=== PATIENT | male | born 1990 | race American Indian/Alaskan Native ===

== ENCOUNTER 2021-10-31 01:19 | Emergency (ER) | payer SELFPAY ==
[2021-10-31 00:07] VITALS: BP 169/108; PULSE 104
[2021-10-31 00:30] LABS: ANION GAP 10.9 mEq/L (7-13); CHLORIDE,CL 101 mmol/L (98-107); SODIUM,NA 138 mmol/L (136-145)
[2021-10-31 00:41] LABS: ACETAMINOPHEN 0 ug/mL (10-30 (Therapeutic)); ESTIMATED GFR 116 mL/min (>=60)
[~2021-10-31 01:19] MED LIST: LORazepam 1 MG Tab PO ONE
[2021-10-31] MEDS ORDERED: LORazepam 0.5 MG Tab PO ONE (01:20)
[2021-10-31] MEDS ORDERED: LORazepam 0.5 MG Tab ONE (01:21)
[2021-10-31 01:41] LABS: AMPHETAMINES,URINE NEGATIVE (NEGATIVE); BARBITURATES,URINE NEGATIVE (NEGATIVE); BENZODIAZEPINE,URINE NEGATIVE (NEGATIVE); MDMA (ECSTASY), URINE NEGATIVE (NEGATIVE); METHADONE,URINE NEGATIVE (NEGATIVE); METHAMPHETAMINES,URINE NEGATIVE (NEGATIVE); OPIATES,URINE NEGATIVE (NEGATIVE); OXYCODONE,URINE NEGATIVE (NEGATIVE); PHENCYCLIDINE,URINE NEGATIVE (NEGATIVE); TCA,URINE NEGATIVE (NEGATIVE)
== END 2021-10-31 02:18 ==
LOC: DL.ED 01:19
DX: R41.82 Altered mental status, unspecified (principal); Z91.19 Patient's noncompliance with other medical treatment and regimen; Z20.822 Contact with and (suspected) exposure to COVID-19
CPT/HCPCS: 36415; 80053; 80143; 80179; 80305-QW; 80307; 81001; 82140; 82150; 83605; 83690; 83735; 85025; 87086; 93005; 93010; 99284; 99285; A9270-GY; U0002